=== PATIENT | male | born 1940 | race Caucasian/White ===

== ENCOUNTER 2022-01-10 17:36 | Emergency (ER) | payer MEDICARE, SELFPAY ==
[2022-01-10 17:48] VITALS: BP 134/74; PULSE 93; RESP 18; TEMP 36.4; O2SAT 98
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
== END 2022-01-10 18:41 | disposition home or self-care (01) ==
PROVIDERS: Emergency Provider Nurse Practitioner Family; PCP Family Medicine Adolescent Medicine
DX: S61.412A Laceration without foreign body of left hand, initial encounter (principal); W45.8XXA Other foreign body or object entering through skin, initial encounter; I10 Essential (primary) hypertension; I25.2 Old myocardial infarction; N40.1 Benign prostatic hyperplasia with lower urinary tract symptoms; Z79.82 Long term (current) use of aspirin
CPT/HCPCS: 12001; 99213; G0463

== ENCOUNTER 2022-01-20 10:47 | Emergency (ER) | payer MEDICARE, SELFPAY ==
[2022-01-20 11:00] VITALS: BP 131/84; PULSE 96; RESP 18; TEMP 36.3; O2SAT 98
--- NOTE | 2022-01-20 11:22 | ED.WOUNDLAC ---
HPI - Wound/Laceration General Chief Complaint: Skin/Abscess/Foreign Body Stated Complaint: suture removal Time Seen by Provider: 01/20/22 11:15 Source: patient Mode of arrival: ambulatory Limitations: no limitations History of Present Illness HPI narrative: Patient presents today for suture removal of sutures from his left hand. They were placed on 01/10/2022. He finished his last dose of antibiotics today. Denies any difficulties. Related Data Home Medications Medication Instructions Recorded Confirmed aspirin 81 mg tablet,delayed 81 mg PO DAILY 06/19/21 01/20/22 release (Adult Low Dose Aspirin) losartan 25 mg tablet 12.5 mg PO DAILY 06/19/21 01/20/22 tamsulosin 0.4 mg capsule 0.4 mg PO DAILY 06/19/21 01/20/22 Allergies Allergy/AdvReac Type Severity Reaction Status Date / Time No Known Allergies Allergy Verified 01/20/22 11:06 Review of Systems Review of Systems: CONSTITUTIONAL: Denies body aches, fever, chills, or sweats. EYES: Denies visual changes, redness, or discharge. ENT: Denies rhinorrhea, congestion, sore throat, or otalgia. CARDIOVASCULAR: Denies chest pain, palpitations, or edema. RESPIRATORY: Denies cough or dyspnea. GASTROINTESTINAL: Denies abdominal pain, nausea, vomiting, or diarrhea. GENITOURINARY: Denies dysuria or hematuria. SKIN: Denies rash, itching. + Healing wound to left hand MUSCULOSKELETAL: Denies back pain, joint pain, or myalgia. NEUROLOGIC: Denies headache, numbness, tingling, or weakness. PSYCH: Denies depression or anxiety. [facility] Past Medical History Medical History Benign prostatic hyperplasia with lower urinary tract symptoms Essential (primary) hypertension Old myocardial infarction 2013 Surgical History Surgical History H/O right inguinal hernia repair twice Family History Family History Other Acute myocardial infarction Cerebrovascular accident Heart disease Comments At time of signature, I have reviewed and agree with nursing past medical, surgical, social and family history unless otherwise noted. Please see nursing chart for further information. There is no relevant family history pertinent to the presenting complaint Exam Narrative: GENERAL: Well-appearing, well-nourished, and in no acute distress. HEAD: Normocephalic, atraumatic. EYES: EOMI. No redness or drainage. Conjunctivae normal. ENT: Mucous membranes pink and moist. NECK: Normal AROM. CHEST: No respiratory distress. EXTREMITIES: Healed laceration to the left hand, webbing between first and second fingers. No signs of bacterial infection. 4 intact sutures. SKIN: Warm, dry, no rash. Capillary refill normal. Normal skin turgor. NEURO: No focal deficits. Alert and oriented x3. Gait steady. PSYCH: Normal affect. No signs of depression or anxiety. Course Course Level of Care: Express Care Visit Vital Signs Vital signs: Vital Signs Temperature 97.4 F L 01/20/22 11:00 Pulse Rate 96 01/20/22 11:00 Respiratory Rate 18 01/20/22 11:00 Blood Pressure 131/84 01/20/22 11:00 Pulse Oximetry 98 01/20/22 11:00 Oxygen Delivery Room Air 01/20/22 11:00 Temperature 97.4 F L 01/20/22 11:00 Pulse Rate 96 01/20/22 11:00 Respiratory Rate 18 01/20/22 11:00 Blood Pressure 131/84 01/20/22 11:00 Pulse Oximetry 98 01/20/22 11:00 Oxygen Delivery Room Air 01/20/22 11:00 Reviewed. Pt has been instructed to follow up with his PCP regarding his elevated blood pressure today. Procedures Other Procedure Procedure 1: Other Procedure: 4 sutures removed from left hand. Patient tolerated procedure well. MDM - Wound/Laceration Differential Diagnosis Differential diagnosis: Likely laceration and other (Cellulitis, abscess, suture removal) Critical Care Time Critical Care T
== END 2022-01-20 11:29 | disposition home or self-care (01) ==
PROVIDERS: Emergency Provider Nurse Practitioner; PCP Family Medicine Adolescent Medicine
DX: S61.412D Laceration without foreign body of left hand, subsequent encounter (principal); X58.XXXD Exposure to other specified factors, subsequent encounter; I10 Essential (primary) hypertension; N40.1 Benign prostatic hyperplasia with lower urinary tract symptoms; I25.2 Old myocardial infarction
CPT/HCPCS: 99211; G0463

== ENCOUNTER 2022-09-30 14:10 | Outpatient (CLI) | payer MEDICARE, SELFPAY ==
[2022-09-30 21:11] LABS: Prostate Specific Antigen 11.8 ng/mL (< OR = 4.0)
== END 2022-09-30 14:11 | disposition home or self-care (01) ==
LOC: ANHGOSHLAB 14:12
PROVIDERS: PCP Family Medicine; Visit Provider Family Medicine
DX: Z12.5 Encounter for screening for malignant neoplasm of prostate (principal); C61 Malignant neoplasm of prostate
CPT/HCPCS: 36415; 84153; G0103

== ENCOUNTER 2024-02-14 18:24 | Emergency (ER) | payer MEDICARE, SELFPAY ==
[2024-02-14 18:36] VITALS: BP 154/87; PULSE 72; RESP 16; TEMP 36.2; O2SAT 99
--- NOTE | 2024-02-14 18:40 | ED.UPPEXIN ---
HPI - Extremity Injury (Upper) General Chief Complaint: Extremity Injury, Upper Stated Complaint: arm injury Time Seen by Provider: 02/14/24 18:40 Source: patient Mode of arrival: ambulatory Limitations: no limitations History of Present Illness HPI narrative: Roger is an 83-year-old male patient presenting to the clinic today with complaints of a left arm injury after falling. 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 He denies any loss of consciousness or neck pain. He does take Plavix and aspirin. This occurred 10 30 this morning. States he has a slight headache but no other neurological symptoms. Only reason why the family brought him in tonight was because the wound to his left arm keeps bleeding. Tdap was greater than 5 years old. Related Data Home Medications Medication Instructions Recorded Confirmed aspirin 81 mg tablet,delayed 81 mg PO DAILY 06/19/21 02/14/24 release (Adult Low Dose Aspirin) Allergies Allergy/AdvReac Type Severity Reaction Status Date / Time No Known Allergies Allergy Verified 02/14/24 18:33 Review of Systems Review of Systems: Pertinent positives per HPI. Patient denies any fever, chills, rash, visual changes, dizziness, cough, runny nose, sore throat, shortness of breath, chest pain, palpitations, nausea, vomiting, diarrhea, constipation, abdominal pain, or any urinary issues. [facility] Past Medical History Medical History Benign prostatic hyperplasia with lower urinary tract symptoms Essential (primary) hypertension Old myocardial infarction 2013 Surgical History Surgical History H/O right inguinal hernia repair twice Family History Family History Other Acute myocardial infarction Cerebrovascular accident Heart disease Social History Social History Smoking status: Never smoker Comments At the time of my signature, I reviewed and agree with the nursing past medical, surgical, social, and family history. There is no relevant family history pertinent to the patient complaint. Exam Narrative: General: Well-developed, well nourished, in no apparent distress Head: Normocephalic, atraumatic Eyes: Pupils equally round and reactive to light bilaterally, EOM intact, sclera and conjunctive clear, no discharge, lids normal Ears: TMs intact and clear, ear canals clear, no drainage, grossly hearing normal. Nose: Nares patent, no discharge, no inflammation, no sinus tenderness. Mouth: Oropharynx without lesions or masses, good dentition, MMM. Tongue midline, even rise and fall of uvula Neck: Supple, trachea midline, no enlargement of anterior or posterior cervical nodes, no thyroid masses or goiter palpable. Cardio: Regular rate and rhythm, s1 and s2 normal, no murmur appreciated. Resp: Clear to auscultation bilaterally anteriorly and posteriorly, no rhonchi, rales, wheezing or rubs Musculoskeletal: No deformity, non-tender to palpation, grossly normal range of motion, muscle strength strong and equal, peripheral pulse strong, no edema, no cyanosis, normal gait and station Neuro: Alert and oriented x4 with normal speech, no focal deficits, cranial nerves I through XII intact, muscle strength 5 out of 5, sensation intact bilaterally Skin: Complete skin tear to the left proximal forearm measuring 5 cm x 2 cm-oozing blood Course Course Emergency Course: Portions of this record may have been created with voice recognition software. Level of Care: Express Care Visit Vital Signs Vital signs: Vital Signs Temperature 36.2 C L 02/14/24 18:36 Pulse Rate 72 02/14/24 18:36 Respiratory Rate 16 02/14/24 18:36 Blood P
[2024-02-14] MEDS: TETANUS,DIPHTHERIA,AC PERTUSSIS ADULT (0.5 ML) BOOSTRIX IM (19:02)
== END 2024-02-14 19:06 | disposition home or self-care (01) ==
PROVIDERS: Emergency Provider Nurse Practitioner Family; PCP Family Medicine
DX: S51.812A Laceration without foreign body of left forearm, initial encounter (principal); W10.9XXA Fall (on) (from) unspecified stairs and steps, initial encounter; Y92.22 Religious institution as the place of occurrence of the external cause; S00.83XA Contusion of other part of head, initial encounter; Z23 Encounter for immunization; N40.1 Benign prostatic hyperplasia with lower urinary tract symptoms; I10 Essential (primary) hypertension; I25.2 Old myocardial infarction; Z79.82 Long term (current) use of aspirin; Z79.01 Long term (current) use of anticoagulants
CPT/HCPCS: 90471; 90715; 99212; G0463

== ENCOUNTER 2024-02-14 22:02 | Emergency (ER) | payer MEDICARE, SELFPAY ==
--- NOTE | ~2024-02-14 | CT_ITS ---
Noncontrast CT scan of the cervical spine Technique: Multiple contiguous axial [address] images of the cervical spine were obtained and rec onstructed in 2D sagittal and coronal planes on the acquisition scanner. Dose reduction technique was used on this scan by utilizing automated exposure control, adjustment of the mA and/or kV according to patient size. The dose-length product (DLP) was 407.32 mGy-cm. Clinical History: Pain Findings: No acute fracture. There is minimal grade 1 anterolisthesis of C4 over C5. There is severe degenerative disc changes C5-C6 and C6-C7.. There is moderate degenerative disc narrowing at C4-C5. T here are scattered facet joint degenerative changes. There is minimal right neural foraminal narrowin g at C4 and C5. There is mild bilateral neural foraminal narrowing, right worse than left, at C5-C6 a nd C6-C7. No prevertebral soft tissue swelling. Impression: No acute fracture. Minimal grade 1 anterolisthesis of C4 over C5. Degenerative spondylosis, as above. Reviewed, dictated and finalized at [facility]. Impression: No acute fracture. Minimal grade 1 anterolisthesis of C4 over C5. Degenerative spondylosis, as above.
--- NOTE | ~2024-02-14 | CT_ITS ---
CT head without contrast Indication: Status post fall Technique: Serial scans were obtained through the brain without the administration of contrast. Dose reduction technique was used on this scan by utilizing automated exposure control and iterative recon struction technique. The dose-length product (DLP) was 756.67 mGy-cm. Findings: There is no evidence of intracranial hemorrhage, mass lesion, or acute infarct. The ventri cles and subarachnoid spaces are dilated, consistent with moderate atrophy. Low attenuation regions are seen within the periventricular white matter bilaterally, likely representing changes from chroni c microvascular ischemic disease. There is no evidence of edema, mass effect or midline shift. The visualized paranasal sinuses and mastoid air cells are clear. Impression: No intracranial hemorrhage, mass, or acute infarct. Atrophy and chronic white matter changes, as above. Reviewed, dictated and finalized at location . Impression: No intracranial hemorrhage, mass, or acute infarct. Atrophy and chronic white matter changes, as above.
[2024-02-14 22:03] VITALS: BP 161/70; PULSE 69; RESP 19; TEMP 36.3; O2SAT 99
[2024-02-14 22:43] VITALS: BP 147/76; PULSE 79; TEMP 36.2; O2SAT 98
--- NOTE | 2024-02-14 22:44 | ED.FALL ---
HPI - Fall General Chief Complaint: Fall Stated Complaint: fell at [employer] this morning, hit head Time Seen by Provider: 02/14/24 22:29 Source: patient Mode of arrival: ambulatory Limitations: no limitations History of Present Illness HPI Narrative: Patient is an 83-year-old male who presents the ED with report of a head injury. Patient reports he had a mechanical fall this morning at [employer] in which he was stepping off of the choir stage and missed a step, causing him to fall. He did hit his head. Denied LOC. Sustained skin tear to L forearm. Patient is on Plavix and Plavix and aspirin. He was seen at an urgent care after the fall, had his skin tear bandaged and tetanus updated. Patient began to have a slight headache in his left frontal region tonight which prompted his presentation. Related Data Home Medications Medication Instructions Recorded Confirmed aspirin 81 mg tablet,delayed 81 mg PO DAILY 06/19/21 02/14/24 release (Adult Low Dose Aspirin) Allergies Allergy/AdvReac Type Severity Reaction Status Date / Time No Known Allergies Allergy Verified 02/14/24 22:07 [facility] Past Medical History Medical History Benign prostatic hyperplasia with lower urinary tract symptoms Essential (primary) hypertension Old myocardial infarction 2013 Surgical History Surgical History H/O right inguinal hernia repair twice Family History Family History Other Acute myocardial infarction Cerebrovascular accident Heart disease Social History Social History Smoking status: Never smoker Course Vital Signs Vital signs: Vital Signs Temperature 97.4 F L 02/14/24 22:03 Pulse Rate 69 02/14/24 22:03 Respiratory Rate 19 02/14/24 22:03 Blood Pressure 161/70 H 02/14/24 22:03 Pulse Oximetry 99 02/14/24 22:03 Oxygen Delivery Room Air 02/14/24 22:03 Temperature 97.4 F L 02/14/24 22:03 Pulse Rate 69 02/14/24 22:03 Respiratory Rate 19 02/14/24 22:03 Blood Pressure 161/70 H 02/14/24 22:03 Pulse Oximetry 99 02/14/24 22:03 Oxygen Delivery Room Air 02/14/24 22:03 Discharge Plan Discharge Prescriptions: No Action aspirin [Adult Low Dose Aspirin] 81 mg tablet,delayed release (DR/EC) 81 mg PO DAILY tamsulosin 0.4 mg capsule 0.4 mg PO DAILY Qty: 90 3RF clopidogrel 75 mg tablet See Rx Instructions .ROUTE .COMPLEX Qty: 90 1RF Dose Instruction: Take 1 tablet by mouth once daily Rx Instructions: Take 1 tablet by mouth once daily atorvastatin 40 mg tablet See Rx Instructions .ROUTE .COMPLEX Qty: 90 1RF Dose Instruction: Take 1 tablet by mouth once daily Rx Instructions: Take 1 tablet by mouth once daily losartan 25 mg tablet 12.5 mg PO DAILY Qty: 90 3RF Follow-up/Referrals: Miguel Angel Kamara MD [Primary Care Provider] -
--- NOTE | 2024-02-14 22:54 | ED.FALL ---
HPI - Fall General Chief Complaint: Fall Stated Complaint: fell at [employer] this morning, hit head Time Seen by Provider: 02/14/24 22:29 History of Present Illness HPI Narrative: The patient was at [employer] today when he missed a step and fell, hitting his head and his left elbow, causing a skin tear. He went to an urgent care and they cleaned up his left elbow, dressed it, and give him a tetanus shot, and had him go to the ER for a scan of his head as he is on Plavix and aspirin. Denies any loss of consciousness, nausea vomiting Related Data Home Medications Medication Instructions Recorded Confirmed aspirin 81 mg tablet,delayed 81 mg PO DAILY 06/19/21 02/14/24 release (Adult Low Dose Aspirin) Allergies Allergy/AdvReac Type Severity Reaction Status Date / Time No Known Allergies Allergy Verified 02/14/24 22:07 Review of Systems Review of Systems: All systems reviewed & are unremarkable except as noted in HPI and below PMFSH Past Medical History Medical History Benign prostatic hyperplasia with lower urinary tract symptoms Essential (primary) hypertension Old myocardial infarction 2013 Surgical History Surgical History H/O right inguinal hernia repair twice Family History Family History Other Acute myocardial infarction Cerebrovascular accident Heart disease Social History Social History Smoking status: Never smoker Exam Narrative: EXAMINATION OF ORGAN SYSTEMS/BODY AREAS: Constitutional: Vital signs per nursing GENERAL:[No acute distress, non-toxic appearing.] HEAD: Normal with no signs of head trauma. EYES: EOMI, conjunctiva normal ENT: Hearing grossly intact LUNGS: Nonlabored breathing. HEART: [Regular rate and rhythm] ABD: No distension EXT: Normal range of motion, some bruising to the left elbow SKIN: Bruising to the left elbow with a skin tear, bleeding controlled NEURO: [Alert and oriented x 3. No gross focal sensory or strength deficits.] PSYCH: Normal affect Course Vital Signs Vital signs: Vital Signs Temperature 97.4 F L 02/14/24 22:03 Pulse Rate 69 02/14/24 22:03 Respiratory Rate 19 02/14/24 22:03 Blood Pressure 161/70 H 02/14/24 22:03 Pulse Oximetry 99 02/14/24 22:03 Oxygen Delivery Room Air 02/14/24 22:03 Temperature 97.2 F L 02/14/24 22:43 Pulse Rate 68 02/15/24 00:49 Respiratory Rate 15 02/15/24 00:49 Blood Pressure 142/88 H 02/15/24 00:49 Pulse Oximetry 100 02/15/24 00:49 Oxygen Delivery Room Air 02/14/24 22:03 MDM - Fall MDM Narrative Medical decision making narrative: Patient here after head injury he is on aspirin and Plavix, had already had his elbow skin tear dressed and cleaned with tetanus shot updated at Urgent Care today. He is very well-appearing here, CT head and C-spine thankfully are negative, patient and updated and stable for discharge with return precautions Discharge Plan Discharge Clinical Impression: Traumatic injury of head, Skin tear of elbow without complication Patient Disposition: Home, Self-Care Condition: Stable Instructions: Antibiotic Form, Head Injury (ED), Skin Tear (ED) Additional Instructions: Please follow-up with primary care doctor, you can always return to the emergency room for any further issues. Prescriptions: No Action aspirin [Adult Low Dose Aspirin] 81 mg tablet,delayed release (DR/EC) 81 mg PO DAILY tamsulosin 0.4 mg capsule 0.4 mg PO DAILY Qty: 90 3RF clopidogrel 75 mg tablet See Rx Instructions .ROUTE .COMPLEX Qty: 90 1RF Dose Instruction: Take 1 tablet by mouth once daily Rx Instructions: Take 1 tablet by mouth once daily atorvastatin 40 mg tablet See Rx Instructions .
--- NOTE | 2024-02-14 23:35 | PC.NURSE ---
Assumed care of pt after receiving report from CRISELDA Valverde @ [id number]
[2024-02-15 00:49] VITALS: BP 142/88; PULSE 68; RESP 15; O2SAT 100
== END 2024-02-15 00:49 | disposition home or self-care (01) ==
PROVIDERS: Emergency Provider Emergency Medicine; PCP Family Medicine
DX: S09.90XA Unspecified injury of head, initial encounter (principal); S51.012A Laceration without foreign body of left elbow, initial encounter; I10 Essential (primary) hypertension; I25.2 Old myocardial infarction; N40.0 Benign prostatic hyperplasia without lower urinary tract symptoms; W10.9XXA Fall (on) (from) unspecified stairs and steps, initial encounter
CPT/HCPCS: 70450; 72126; 90471; 90715; 99284; Q9967

== ENCOUNTER 2025-01-31 13:56 | Outpatient (CLI) | payer MEDICARE, SELFPAY ==
--- NOTE | ~2025-01-31 | US_ITS ---
US arterial ankle brachial ind INDICATION: Peripheral vascular disease TECHNIQUE: Segmental pressures and plethysmographic and Doppler waveforms of the brachial and lower extremity arteries were obtained. COMPARISON: None. FINDINGS: Right and left brachial artery pressures of 129 mm Hg and 119 mm Hg, respectively, are concordant (normal difference <= 30 mmHg). The right ankle-brachial index (THIENRO) is 1.05 (normal >= 0.9-1.0). The right great toe-brachial index (TBI) is 0.71 (normal >= 0.60). The left THIERNO is 1.05. The left TBI is 0.58. IMPRESSION: 1. Normal ankle-brachial indices. 2: Mildly decreased left toe brachial index consistent with peripheral arterial disease. Reviewed, dictated and finalized at location O. IMPRESSION: 1. Normal ankle-brachial indices. 2: Mildly decreased left toe brachial index consistent with peripheral arteria l disease.
--- OUTSIDE RECORDS SUMMARY | 2025-01-31 14:02 | XMS_ITS | Clinical Summary ---
Author Organization [facility] [address] Address [address] [place] [address] Care Team Providers Care [employer] Name Role Phone Miguel Angel Kamara MD Primary Care Provider [phone] Allergies No known active allergies Medications atorvastatin (LIPITOR) 40 mg tablet take 1 tablet by oral route every day 0 0 07/20/2013 Active clopidogrel (PLAVIX) 75 mg tablet take 1 tablet by oral route every day 0 0 02/20/2016 Active tamsulosin (FLOMAX) 0.4 mg capsule,extende d release 24hr Take 1 capsule (0.4 mg total) by mouth daily Active aspirin 81 mg tablet Take 1 tablet (81 mg total) by mouth daily Active losartan (COZAAR) 25 mg tablet Take 1/2 (one-half) tablet by mouth once daily 45 tablet 2 05/06/2023 Active acetaminophen (TYLENOL) 500 mg tablet Take 1 tablet (500 mg total) by mouth every 6 (six) hours as needed for pain Active Active Problems Problem Noted Date Diagnosed Date Nonrheumatic aortic (valve) stenosis 09/30/2024 Mixed hyperlipidemia 03/24/2022 Bilateral carotid artery disease 11/17/2016 H/O TIA (transient ischemic attack) and stroke 0 11/17/2016 Temporary cerebral vascular dysfunction 02/20/20 16 Overview (09/13/2016): Transient cerebral ischemia, unspecified type Benign hypertension 07/25/2015 Overview (09/13/2016): HTN (hypertension), benign Coronary artery disease 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 07/25/2015 Overview (09/13/2016): Coronary artery disease involving hughes coronary artery of hughes heart without angina pectoris Dizziness 07/25/2015 Overview (09/13/2016): Dizziness Resolved Problems Problem Noted Date Diagnosed Date Resolved Date Stenosis of carotid artery 02/20/2016 0 06/29/2018 Overview (09/13/2016): Carotid stenosis, bilateral Dyslipidemia 07/25/2015 03/24/2022 Overview (09/13/2016): Dyslipidemia Medical History Medical History Date Comments Hx Other Medical Coronary Artery Disease mod nonobstructive CAD Hx Other Medical Myocardial Infa rction ?thrombus with spont lysis Hypertension Hypertension Coronary artery disease Family History Medical History Relation Name Comments No Known Problems Father No Known Problems Mother Relation Name Status Comments Father Mother Social History Tobacco Use Types Packs/Day Years Used Date Smoking Tobacco: Never Smokeless Tobacco: Never Alcohol Use Standard Drinks/Week Comments No 0 (1 standard drink = 0.6 oz pur e alcohol) Sex and Gender Information Value Date Recorded Sex Assigned at Not on file Legal Sex Male 3:09 AM 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 Gender Identity Male 06/08/2020 9:57 AM 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 Sexual Orientation Not on file Obstetrics History Last Filed Vital Signs Vital Sign Reading Time Taken Comments Blood Pressure 120/74 09/30/2024 10:54 AM CDT Pulse 84 09/30/2024 10:54 AM CDT Temperature - - Respiratory Rate - - Oxygen Saturation 96% 09/30/2024 10:54 AM CDT Inhaled Oxygen Concentration - - Weight 86.2 kg (190 lb) 09/30/2024 10:54 AM CDT Height 168.9 cm (5' 6.5) 09/30/2024 10:54 AM CD T Body Mass Index 30.21 09/30/2024 10:54 AM CDT Plan of Treatment Health Maintenance Due Date Last Done Comments Depression Screening 1938 Fall Risk Assessment 1938 DTaP/Tdap/Td Vaccine (1 - Tdap) 1949 Hepatitis B Screening 1956 Pneumococcal vaccine 65+ (1 of 1 - PCV) 1988 Zoster Vaccine (1 of 2) 1988 Well Visit 65+ 2003 Influenza Vaccine (#1) 2025 Insurance Care Teams Material [employer] Relationship Specialty Start Date End Date Miguel Angel Kamara MD PCP - General Family Medicine 03/24/22
== END 2025-01-31 13:57 | disposition home or self-care (01) ==
PROVIDERS: PCP Family Medicine; Visit Provider Nurse Practitioner Family
DX: I73.9 Peripheral vascular disease, unspecified (principal); E78.00 Pure hypercholesterolemia, unspecified; I25.10 Atherosclerotic heart disease of native coronary artery without angina pectoris
CPT/HCPCS: 93922